=== PATIENT | female | born 1985 | race Caucasian/White ===

== ENCOUNTER 2020-11-27 09:12 | Outpatient (CLI) | payer OTHER ==
[~2020-11-27 09:12] MED LIST: BENTYL 20MG TAB20 MG PO; REGLAN10 MG PO
[2020-12-06] MEDS ORDERED: IBUPROFEN800 MG PO (10:41)
[2020-12-06] MEDS ORDERED: HYDROCODONE-AC1 EAC1 PO (10:41)
[2020-12-06] MEDS ORDERED: DOCUSATE SODIU100 MG PO (10:41)
== END 2020-11-27 12:14 | disposition home or self-care (01) ==
LOC: GENOP 09:12
DX: O26.893 Other specified pregnancy related conditions, third trimester (principal); R10.9 Unspecified abdominal pain; Z3A.38 38 weeks gestation of pregnancy
CPT/HCPCS: 81001; 83518; 96372; J3105

== ENCOUNTER 2020-12-06 05:44 | Inpatient (IN) | payer OTHER ==
[~2020-12-06] VITALS: Ht 175.3 cm; Wt 95.3 kg
[2020-12-06] MEDS ORDERED: HEPARIN SO5000 UTS/1 SC (06:19)
[2020-12-06] MEDS ORDERED: PRENATABS FA T1 EACH PO (06:20)
[2020-12-06] MEDS ORDERED: CELEXA10 MG PO (06:20)
[2020-12-06] MEDS ORDERED: IBUPROFEN800 MG PO (10:41)
[2020-12-06] MEDS ORDERED: DOCUSATE SODIU100 MG PO (10:41)
[2020-12-06] MEDS ORDERED: HYDROCODONE-AC1 EAC1 PO (10:41)
[2020-12-07 06:29] LABS: HEMOGLOBIN 11.6 gm/dl (12.3-15.3)
== END 2020-12-07 13:27 | disposition home or self-care (01) | DRG 788 ==
LOC: OB 05:44
PROVIDERS: ADMIT Obstetrics & Gynecology
PROC: 4A1HX4Z Monitoring of Products of Conception, Cardiac Electrical Activity, External Approach (ICD-10-PCS; 2020-12-06)
PROC: 10D00Z1 Extraction of Products of Conception, Low, Open Approach (ICD-10-PCS; principal; 2020-12-06 09:35)
DX: O34.211 Maternal care for low transverse scar from previous cesarean delivery (principal); N85.8 Other specified noninflammatory disorders of uterus; Z3A.39 39 weeks gestation of pregnancy; Z37.0 Single live birth; Z86.718 Personal history of other venous thrombosis and embolism; Z79.01 Long term (current) use of anticoagulants; Z87.891 Personal history of nicotine dependence; O99.824 Streptococcus B carrier state complicating childbirth; Z20.822 Contact with and (suspected) exposure to COVID-19
CPT/HCPCS: 36415; 81001; 82800; 85014; 85018; 85025; 90715; C9113; J0690; J1650; J1885; J2274; J2405; J2590; J3010; J7120